=== PATIENT | male | born 1975 | race Caucasian/White ===

== ENCOUNTER → 2018-11-26 | Outpatient (CLI) | payer BC ==
[2018-11-26 15:54] LABS: ABSOLUTE BASOPHILS 0.1 thou/uL (0.0-0.2); ABSOLUTE EOSINOPHILS 0.5 thou/uL (0.0-0.7); ABSOLUTE LYMPHOCYTES 2.2 thou/uL (0.8-5.3); ABSOLUTE MONOCYTES 0.8 thou/uL (0.0-1.2); ABSOLUTE NEUTROPHILS 4.2 thou/uL (1.6-8.1); BASOPHILS 1.1 %; EOSINOPHILS 6.6 %; HEMOGLOBIN 14.9 gm/dL (14.0-18.0); LYMPHOCYTES 27.8 %; MCH 30.8 pg (26.0-34.0); MCHC 34.7 g/dL (28.0-37.0); MCV 88.8 fL (80.0-100.0); MONOCYTES 9.7 %; MPV 6.6 fl. (7.2-11.1); NUCLEATED RBCS 0 /100WBC; PLATELET COUNT* 316 thou/uL (150-400); POLYS 54.8 %; RBC 4.84 mil/uL (4.50-6.00); RDW-CV 13.1 % (10.5-14.5); WBC 7.7 thou/uL (4.0-11.0)
[2018-11-26 16:07] LABS: ALBUMIN 3.5 g/dL (3.4-5.0); CALCIUM 8.6 mg/dL (8.5-10.1); CREATININE 0.8 mg/dL (0.6-1.3); POTASSIUM 3.8 mmol/L (3.5-5.1); TOTAL BILIRUBIN 0.3 mg/dL (<0.1-1.0); TOTAL PROTEIN 6.7 g/dL (6.4-8.2)
[2018-11-26 16:37] LABS: SGOT 44.4 U/L (15-37)
[2018-11-26 16:38] LABS: SGPT 86.4 U/L (30-65)
== END ==
LOC: M.CT 15:31
PROVIDERS: Physician Assistant
DX: R10.33 Periumbilical pain (principal)

== ENCOUNTER → 2018-12-25 | Outpatient (CLI) | payer BC ==
[2018-12-25 17:42] LABS: CHOLESTEROL 199 mg/dL (<200); HDL CHOLESTEROL 35 mg/dL (>40); LDL CHOLESTEROL 86 mg/dL (<100); TC:HDL 5.7 Ratio (Not establshd); TRIGLYCERIDE 390 mg/dL (<150); VLDL 78 mg/dL (<40)
[2018-12-25 17:43] LABS: SERUM ASSESSMENT CLEAR
[2018-12-25 17:47] LABS: ALBUMIN 3.6 g/dL (3.4-5.0); DIRECT BILIRUBIN 0.1 mg/dL (<0.1-0.3); TOTAL BILIRUBIN 0.3 mg/dL (<0.1-1.0); TOTAL PROTEIN 6.3 g/dL (6.4-8.2)
== END ==
LOC: M.LAB 17:03
PROVIDERS: Physician Assistant
DX: R94.5 Abnormal results of liver function studies (principal)

== ENCOUNTER 2021-03-18 09:42 | Emergency (ER) | payer BC ==
[~2021-03-18] VITALS: Ht 177.8 cm; Wt 93.0 kg
[2021-03-18] MEDS ORDERED: TRIAMCINOLONE A80 G2 TOP (10:15)
[2021-03-18 10:35] VITALS: BP 119/90
== END 2021-03-18 10:36 | disposition home or self-care (01) ==
LOC: M.ERS 09:42
DX: L53.9 Erythematous condition, unspecified (principal); Z88.0 Allergy status to penicillin

== ENCOUNTER 2021-10-29 15:15 | Emergency (ER) | payer BC ==
[~2021-10-29] VITALS: Ht 175.3 cm; Wt 88.5 kg
[~2021-10-29 15:15] MED LIST: TRIAMCINOLONE A80 G2 TOP
[2021-10-29 17:54] LABS: HEMATOCRIT 46.8 % (42.0-52.0); HEMOGLOBIN 16.3 gm/dL (14.0-18.0); MCH 30.2 pg (26.0-34.0); MCHC 34.9 g/dL (28.0-37.0); MCV 86.7 fL (80.0-100.0); MPV 6.6 fl. (7.2-11.1); NUCLEATED RBCS 0 /100WBC; PLATELET COUNT* 358 thou/uL (150-400); WBC 9.6 thou/uL (4.0-11.0)
[2021-10-29 18:10] LABS: CREATININE 0.8 mg/dL (0.6-1.3); POTASSIUM 4.1 mmol/L (3.5-5.1)
[2021-10-29 18:14] LABS: ALBUMIN 4.5 g/dL (3.4-5.0); TOTAL BILIRUBIN 0.5 mg/dL (<0.1-1.0); TOTAL PROTEIN 8.4 g/dL (6.4-8.2)
[2021-10-29 18:32] LABS: ABSOLUTE EOSINOPHILS 0.8 thou/uL (0.0-0.7); ABSOLUTE LYMPHOCYTES 2.5 thou/uL (0.8-5.3); ABSOLUTE MONOCYTES 0.6 thou/uL (0.0-1.2); ABSOLUTE NEUTROPHILS 5.8 thou/uL (1.6-8.1); PLATELET ESTIMATE ADEQUATE
[2021-10-29] MEDS ORDERED: NORFLEX100 MG PO (18:35)
[2021-10-29 18:50] VITALS: BP 153/99
== END 2021-10-29 18:50 | disposition home or self-care (01) ==
LOC: M.ERS 15:15
PROVIDERS: Physician Assistant
DX: R51.9 Headache, unspecified (principal); M54.2 Cervicalgia; Z98.890 Other specified postprocedural states; Z96.22 Myringotomy tube(s) status; Z88.0 Allergy status to penicillin